=== PATIENT | male | born 1965 | race Caucasian/White ===

== ENCOUNTER 2024-11-28 16:32 | Inpatient (IN) | payer BC, SELFPAY ==
[2024-11-28 09:27] VITALS: BP 151/108
[2024-11-28 10:16] LABS: % Basophils 0.2 % (0-2); % Eosinophils 0.3 % (0-6); % Immature Granulocytes 0.3 % (0-0.5); % Lymphocytes 16.2 % (20.5-51.1); % Monocytes 7.8 % (1.7-9.3); % Neutrophils 75.2 % (42.2-75.2); Absolute Lymphocytes 1.9 10^3/uL (1.2-3.4); Absolute Monocytes 0.9 10^3/uL (0.1-0.6); Absolute Neutrophils 8.6 10^3/uL (1.4-6.5); Hematocrit 46.3 % (39.0-52.0); Hemoglobin 16.5 g/dL (13.0-18.0); Mean Corp Hgb Conc. 35.6 g/dL (33.0-37.0); Mean Corpuscular Hgb 31.1 pg (27.0-31.0); Mean Corpuscular Volume 87.2 fL (80.0-94.0); Mean Platelet Volume 9.1 fL (7.4-10.4); Nucleated Red Blood Cells % 0 % (-); Platelet Count 212 10^3/uL (130-400); Red Blood Cell Count 5.31 10^6/uL (4.70-6.10); Red Cell Dist. Width 12.2 % (11.5-14.5); White Blood Cell Count 11.4 10^3/uL (4.8-10.8)
[2024-11-28 10:34] LABS: ALT (SGPT) 39 U/L (0-50); AST (SGOT) 32 U/L (17-59); Albumin 4.8 g/dl (3.5-5.0); Alkaline Phosphatase 81 U/L (38-126); Blood Urea Nitrogen 14 mg/dl (9-20); Calcium 9.3 mg/dl (8.4-10.2); Carbon Dioxide 26 mmol/L (22-30); Chloride 97 mmol/L (98-107); Glucose 151 mg/dl (70-99); Lipase 153 U/L (23-300); Potassium 3.9 mmol/L (3.5-5.1); Sodium 137 mmol/L (135-145); Total Bilirubin 3.2 mg/dl (0.2-1.3); Total Protein 7.9 g/dl (6.3-8.2); eGFR 49.63
--- NOTE | 2024-11-28 11:11 | ED.GENMED ---
History of Present Illness
General
Chief Complaint: Abdominal Pain
Source: patient
Exam Limitations: none
Time Seen by Provider: 11/28/24 11:12
Nursing documentation reviewed up to this point in time: agreed with
History of Present Illness
History of Present Illness:
The patient is a pleasant 59-year-old man who comes in with complaints of left lower abdominal pain for several days. Patient reports it is constant. He reports associated with nausea but no vomiting. He denies fever. He denies urinary
complaints. He has no chest pain or shortness of breath
Past History
Past History
ED Past Medical History: Psychiatric (Anxiety, depression) and Other (Anxiety)
ED Past Surgical History: Appendectomy
Social History
Tobacco: Non-smoker
Alcohol: None
Drug: Marijuana
Personal:
Living: with family
Employment: Other
Family History
Family History: Other
Review of Systems
Review of Systems
Allergies reviewed?: Yes
All Other Systems: ROS reviewed and negative except as documented in HPI and ROS
Constitutional: Reports no symptoms
EENT: Reports no symptoms
Respiratory: Reports no symptoms
Cardiac: Reports no symptoms
ABD/GI: Reports abdominal pain and nausea
: Reports no symptoms
Musculoskeletal: Reports no symptoms
Skin: Reports no symptoms
Neurological: Reports no symptoms
Endocrine: Reports no symptoms
Hematologic/Lymphatic: Reports no symptoms
Psychiatric: Reports no symptoms
Phy Exam
Physical Exam
Physical Exam:
Physical Exam
General: no apparent distress, not acutely ill
Neck: supple. no meningeal signs. normal psoterior pharynx
Heart: s1/s2 regular rate and rhythm, no murmur. equal radial pulses.
Lungs: no acute respiratory distress. clear bilaterally
Abdomen: Soft. Left lower quadrant tenderness. No rebound or guarding. No pulsatile mass
Neuro: alert and oriented. no focal neurological deficits
Skin: no rash
Psychiatric: well kept. interactive and cooperative
Extremities: no edema. no calf tenderness. negative homans. good distal pulses
Course
Orders/Labs/Results
Orders:
Orders
11/28/24 09:33
Complete Blood Count/With Diff Urgent
Comprehensive Metabolic Panel Urgent
Lipase Urgent
11/28/24 11:12
CT Abd/pelvis W Iv Cont Urgent
Comment:
Reason For Exam: LLQ pain
11/28/24 11:42
Morphine Sulfate 4 mg IV NOW STA
Ondansetron Injectable [Zofran] 4 mg IV NOW STA
11/28/24 13:09
Urinalysis Reflex To Culture Urgent
Date Specimen was Collected: 11/28/24
Time Specimen was Collected: 12:16
Urine Microscopic Reflex Cult Urgent
Urine Culture Urgent
NAPOLEON Source: U
Specimen Description:
Date Specimen was Collected: 11/28/24
Time Specimen was Collected: 12:16
11/28/24 13:47
Morphine Sulfate 4 mg IV NOW STA
11/28/24 14:10
CefTRIAXone [Rocephin] 1,000 mg IV NOW STA
11/28/24 14:11
0.9% Sodium Chloride 1000 ml [Nss] 1,000 ml IV BOLUS
11/28/24 14:12
0.9% Sodium Chloride 1000 ml [Nss] 1,000 ml IV BOLUS
11/28/24 14:16
Sterile Water [Sterile Water For Injection] 10 ml .ROUTE .STK-MED ONE
11/28/24 Dinner
Regular
At Your Request: Full Participation
Does patient need a safe tray?: No
11/28/24 15:50
Admit/Transfer Patient As Directed
Co-Sign Provider:
Level of Care: Inpatient admission
Assign to:: Telemetry
Physician / Group: Alexi Peace
Diagnosis: acute left hydroureteronephrosis
Reason for Telemetry: Arrhythmia
Date to Stop Telemetry: 12/01/24
Time to Stop Telemetry: 11:00
Reason for Hospitalization: acute left hydroureteronephrosis
Expected length of stay greater than two midnights?: Yes
ELOS- Estimated Length of Stay in days: 3
I certify the patient meets the requirements for IP care: Yes
11/28/24 15:51
Code Status As Directed
Resuscitation Status: Full Code
11/28/24 17:04
Acetaminophen [Tylenol] 650 mg PO Q4HPRN PRN
Morphine Sulfate 4 mg IV Q2HPRN PRN
Ondansetron Injectable [Zofran] 4 mg IV Q6HPRN PRN
Polyethylene Glycol Powder [Miralax] 17 grams PO DAILYPRN PRN
11/28/24 17:04
Activity As Directed
Activity Level: Ambulate
Vital Signs As Directed
Frequency: Per unit guidelines
Weight As Directed
Frequency: Once
DX Deep Vein Thrombosis Video Routine
11/29/24 06:12
Basic Metabolic Panel IN AM
Complete Blood Count/With Diff IN AM
11/29/24 08:00
Lisinopril [Zestril] 20 mg PO DAILY
11/29/24 14:00
CefTRIAXone [Rocephin] 1,000 mg IV Q24H
11/29/24 18:00
Enoxaparin Sodium [Lovenox] 40 mg SC QPM
12/01/24 11:00
DC Protocol for Telemetry ONCE
Abnormal Lab Results
11/28/24 11/28/24
09:33 13:09
WBC 11.4 H 10^3/uL
(4.8-10.8)
MCH 31.1 H pg
(27.0-31.0)
Absolute Neuts (auto) 8.6 H 10^3/uL
(1.4-6.5)
Absolute Monos (auto) 0.9 H 10^3/uL
(0.1-0.6)
Lymphocytes % 16.2 L %
(20.5-51.1)
Chloride 97 L mmol/L
(98-107)
Creatinine 1.6 H mg/dL
(0.7-1.3)
Glucose 151 H mg/dl
(70-99)
Total Bilirubin 3.2 H mg/dl
(0.2-1.3)
Urine Ketones 1+ A
(Negative)
Leukocyte Esterase Rfl Trace A
(Negative)
Urine RBC 3-6 A /HPF
(0-2)
Urine WBC (Reflex) 16-20 A /HPF
(0-5)
Urine Bacteria (Reflex) Few A
(Negative)
11/28/24 09:33
11/28/24 09:33
Vital Signs
Initial and Last Documented VS:
Initial Vital Signs
Temp Pulse Resp BP Pulse Ox
98.5 F 98 18 151/108 98
11/28/24 09:27 11/28/24 09:27 11/28/24 09:27 11/28/24 09:27 11/28/24 09:27
Last Documented Vital Signs
Temp Pulse Resp BP Pulse Ox
99.1 F 77 18 112/76 95
11/29/24 15:37 11/29/24 15:37 11/29/24 15:37 11/29/24 15:37 11/29/24 15:37
MDM/Problems Addressed
Differential Diagnosis Includes:
Acute diverticulitis, partial bowel obstruction, pyelonephritis
MDM/Problems Addressed:
Patient presents with acute left sided abdominal pain
Chronic conditions affecting care: Previous abdomnial surgery
Acute Exacerbation and/or Progression of Chronic Illness: Previous abdomnial surgery
*Pulse Oximetry
Patient hypoxic: no
*EKG
Interpreted by ED Provider?: NA
*Loss Prevention Consultant Interpretation
Rate: Loss Prevention Consultant- N/A
*Critical Care Note
Total Time (30-74mins, 75-104mins- exclusive of procedures): Not Applicable
ED Attending Note
-
Portions of this chart may have been created with voice recognition software.� Occasional wrong word or��sound alike� substitutions may have occurred due to the inherent limitations of voice recognition software.
Discharge Plan
Departure
Patient Disposition: Admit
Date of Disposition: 11/28/24
Time of Disposition: 14:08
Admit to: Med/Surg
Presentation/result/management discussed w/ accepting MD/DO: Hospitalist
Patient with high blood pressure during this ER visit?: Yes
Condition: Good
Discharge Problem:
intractable left renal colic, Acute UTI
Interventions
Interventions:
*Risk Screen - Suicide Last Done: 11/28/24 09:27
*General Assessment Last Done: 11/28/24 09:27
*Neglect/Abuse Screening Last Done: 11/28/24 09:27
ED- Fall Risk Assessment Last Done: 11/28/24 16:58
*ED COVID-19 Vaccine History Last Done: 11/28/24 09:27
*Nursing Disposition Last Done: 11/28/24 16:58
KL-Nkfipk-Fidvggdyft Assessment Last Done: 11/28/24 11:18
Discharge Date and Time
Discharge Date/Time: 11/28/24 17:05
[2024-11-28] MEDS: ZOFRAN 4 MG IV (11:48)
[2024-11-28] MEDS: MORPHINE SULFATE 4 MG IV ×2 (11:49→13:54)
[2024-11-28 13:17] LABS: Urine Albumin Trace (Neg - Trace); Urine Bilirubin Negative (Negative); Urine Character Clear (Clear); Urine Color Yellow; Urine Glucose Negative (Negative); Urine Ketone 1+ (Negative); Urine Leukocyte Trace (Negative); Urine Nitrite Negative (Negative); Urine Occult Blood Negative (Negative); Urine Urobilinogen Negative (Neg - 1+)
[2024-11-28 13:31] LABS: Urine Squamous Cell 0-2 /LPF (Few)
[2024-11-28 13:33] LABS: Urine Bacteria Few (Negative); Urine White Cell 16-20 /HPF (0-5)
[2024-11-28] MEDS: ROCEPHIN 1000 MG IV (14:25)
[2024-11-28] MEDS: NSS 1000 IV ×2 (14:28)
--- NOTE | 2024-11-28 15:12 | HPS.HSE ---
Family Physician
-
Family Physician: Sharath Calderon
Chief Complaint
-
abdominal/flank/back pain
History of Present Illness
Patient is a 59-year-old male with past medical history significant for hypertension and anxiety who presented to [facility] for evaluation of intermittent abdominal, back and flank pain on left side for 3 weeks. Patient states it he feels he
passed a stone previously and now pain is more consistent and severe. He associates pain with intermittent nausea, vomiting and chills. Denies any fevers, chest pain, cough, shortness of breath, constipation, diarrhea or urinary symptoms.
Medical History
Past Medical History
Past Medical History: Reports Other
Additional Past Medical History:
benign hypertension
anxiety
Past Surgical History: Reports Other
Additional Past Surgical History:
appendectomy
Social History
Tobacco: Non-smoker
Alcohol: Occasional
Drug: Marijuana (smokes daily for insomnia)
Personal:
Living: With Family
Employment: Employed
Family History
Family History: Not pertinent
Allergies / Home Medications
Allergies reflects when Allergies were last updated in [employer].
Home Medications with original date entered in [employer]
Allergy/Medication List:
Allergies
Allergy/AdvReac Type Severity Reaction Status Date / Time
No Known Allergies Allergy Verified 11/28/24 09:28
Home Medications
lisinopril 20 mg tablet 20 mg PO DAILY 12/11/21
ondansetron 4 mg disintegrating tablet 4 mg PO BIDPRN PRN nausea 11/28/24
Review of Systems
-
History Source: Patient
Constitutional: Reports Chills
EENT: Reports No Symptoms
Respiratory: Reports No Symptoms
Cardiac: Reports No Symptoms
Abdomen/GI: Reports Abdominal Pain (left side abdominal, flank and back), Nausea and Vomiting
: Reports No Symptoms
Musculoskeletal: Reports No Symptoms
Skin: Reports No Symptoms
Neurological: Reports No Symptoms
Endocrine: Reports No Symptoms
Hematologic/Lymphatic: Reports No Symptoms
Psych: Reports No Symptoms
Physical Exam
Vital Signs
Vital Signs
Temp Pulse Resp BP Pulse Ox
98.5 F 98 16 151/108 98
11/28/24 09:27 11/28/24 09:27 11/28/24 11:16 11/28/24 09:27 11/28/24 09:27
Physical Exam
General: Well Developed, Well Nourished, No Apparent Distress and Conversant
HEENT: NormoCephalic, Moist mucous membranes, Atraumatic, PERRLA, Barron Conjunctivae, Nose Appears Normal, Ears Appear Normal and Neck Nontender
Respiratory: Clear and Non Labored Respirations
Cardiac: S1/S2 and Regular Rhythm; No Murmur, Rub or Gallop
Breast: Deferred by me
GI: Soft, Normal Bowel Sounds and Tender; No Organomegaly
Rectal: Deferred by Provider
Genito-urinary: Deferred by me
Musculoskeletal: No Clubbing, No Cyanosis and No Edema
Skin: No Rash
Neuro: Awake, Alert, AO x 3 and Nonfocal/grossly intact
Psych: Calm and Intact Judgment/Insight
Laboratory Results
-
11/28/24 09:33
11/28/24 09:33
Laboratory Results
Total Bilirubin 3.2 mg/dl (0.2-1.3) H 11/28/24 09:33
AST 32 U/L (17-59) 11/28/24 09:33
ALT 39 U/L (0-50) 11/28/24 09:33
Alkaline Phosphatase 81 U/L (38-126) 11/28/24 09:33
Lipase 153 U/L (23-300) 11/28/24 09:33
Data Reviewed
-
CT Scan: Image Personally Visualized and interpreted
Lab Data: Labs Reviewed by me
Impression/Plan
-
IMPRESSION/PLAN:
#Left side abdominal, flank and back pain
#left obstructing calculus
#acute left hydroureteronephrosis - moderate
WBC 11.4
ABD/Pelvis CT: 1. MODERATE ACUTE LEFT HYDROURETERONEPHROSIS secondary to a 2.6 mm obstructing calculus in the left mid to distal ureter.
2. 3.7 mm nonobstructing right intrarenal calculus.
3. Small number of renal cysts.
4. Moderate diffuse hepatic steatosis.
5. 1.4 cm enhancing lesion in the anterior segment of the right lobe of the liver. Diagnostic possibilities are (1) a hepatic hemangioma (most likely) or (2) less likely other primary or metastatic tumor.
6. Mild splenomegaly.
7. Mild colonic diverticulosis.
8. Moderately enlarged prostate gland.
9. Moderate to severe discogenic degenerative disease at L5/S1.
#benign hypertension
- continue lisinopril
#anxiety
Code Status: Full Code
DVT Prophylaxis: Lovenox Sq
[2024-11-28 16:16] VITALS: BP 112/78
[2024-11-28 17:13] VITALS: BP 151/94; BMI 28.0
[2024-11-28 19:16] VITALS: BP 105/66
--- NOTE | 2024-11-28 19:40 | W.PN.UPDATE ---
Update Note
Progress Note Update
This note serves as an addendum to the H&P by Eda Ahn on November 28, 2024.
History of Presenting Illness
59-year-old male with past medical history significant for hypertension and anxiety who presented for evaluation of 3 episodes of abdominal, back and flank pain on left side for 3 weeks. Patient states it he feels he passed a stone previously and
now pain is more consistent and severe. He associated pain with intermittent nausea, vomiting and chills. He denied any fevers, chest pain, cough, shortness of breath, constipation, diarrhea or urinary symptoms.
Vital Signs
Afebrile
Regular heart rate
BP good/not hypotensive
Saturating well on room air
Physical Exam
General: Well Developed, Well Nourished, No Apparent Distress and Conversant
HEENT: Normocephalic, Moist mucous membranes, Atraumatic
Respiratory: Clear to Auscultation Bilaterally
Cardiac: S1/S2 and Regular Rhythm
GI: Soft, Normal Bowel Sounds and Tender
Musculoskeletal: No Cyanosis and No Edema
Skin: Warm. Dry.
Neuro: Awake, Alert, AO x 3 and Nonfocal/grossly intact
Psych: Calm and Intact Judgment/Insight
Assessment/Plan
#Left side abdominal, flank and back pain
#left obstructing calculus
#acute left hydroureteronephrosis - moderate
WBC 11.4
ABD/Pelvis CT: 1. MODERATE ACUTE LEFT HYDROURETERONEPHROSIS secondary to a 2.6 mm obstructing calculus in the left mid to distal ureter.
2. 3.7 mm nonobstructing right intrarenal calculus.
3. Small number of renal cysts.
4. Moderate diffuse hepatic steatosis.
5. 1.4 cm enhancing lesion in the anterior segment of the right lobe of the liver. Diagnostic possibilities are (1) a hepatic hemangioma (most likely) or (2) less likely other primary or metastatic tumor.
6. Mild splenomegaly.
7. Mild colonic diverticulosis.
8. Moderately enlarged prostate gland.
9. Moderate to severe discogenic degenerative disease at L5/S1.
-Pain control
-Patient's stone is less than 5 mm; it is expected to pass spontaneously
-Patient will need to strain urine for several days
-Will need close urology follow-up
-If patient's symptoms and ALDA do not improve, and he has nausea, vomiting, UTI gets worse, then will consult urology
-Will discuss with urology whether an inpatient consultation is needed
-Given enlarged prostate gland, will start Tamsulosin
#Acute Kidney Injury -- likely postobstructive
#benign hypertension
- continue lisinopril
#anxiety
Code Status: Full Code
DVT Prophylaxis: Lovenox Sq
[2024-11-28] MEDS: FLOMAX 0.4 MG PO (20:42)
[2024-11-28 23:38] VITALS: BP 105/71
[2024-11-29 03:27] VITALS: BP 107/70
[2024-11-29 07:18] LABS: % Basophils 0.3 % (0-2); % Eosinophils 1.7 % (0-6); % Immature Granulocytes 0.3 % (0-0.5); % Lymphocytes 23.8 % (20.5-51.1); % Monocytes 9.4 % (1.7-9.3); % Neutrophils 64.5 % (42.2-75.2); Absolute Eosinophils 0.2 10^3/uL (0-0.7); Absolute Lymphocytes 2.2 10^3/uL (1.2-3.4); Absolute Monocytes 0.9 10^3/uL (0.1-0.6); Absolute Neutrophils 5.9 10^3/uL (1.4-6.5); Hematocrit 40.7 % (39.0-52.0); Hemoglobin 13.9 g/dL (13.0-18.0); Mean Corp Hgb Conc. 34.2 g/dL (33.0-37.0); Mean Corpuscular Hgb 30.8 pg (27.0-31.0); Mean Corpuscular Volume 90.2 fL (80.0-94.0); Mean Platelet Volume 9.3 fL (7.4-10.4); Nucleated Red Blood Cells % 0 % (-); Platelet Count 189 10^3/uL (130-400); Red Blood Cell Count 4.51 10^6/uL (4.70-6.10); Red Cell Dist. Width 12.2 % (11.5-14.5); White Blood Cell Count 9.2 10^3/uL (4.8-10.8)
[2024-11-29 07:30] VITALS: BP 115/75
[2024-11-29 07:43] LABS: Blood Urea Nitrogen 16 mg/dl (9-20); Calcium 8.7 mg/dl (8.4-10.2); Carbon Dioxide 29 mmol/L (22-30); Chloride 99 mmol/L (98-107); Estimated Creatinine Clearance 52 ml/min; Glucose 97 mg/dl (70-99); Sodium 136 mmol/L (135-145); eGFR 53.63
[2024-11-29] MEDS: FLOMAX 0.4 MG PO (08:07)
[2024-11-29] MEDS: ZESTRIL 20 MG PO (08:07)
[2024-11-29 10:12] LABS: Magnesium 2.1 mg/dl (1.6-2.3)
[2024-11-29 11:23] VITALS: BP 138/77
[2024-11-29] MEDS: STERILE WATER FOR INJECTION 10 ML IV (14:29)
[2024-11-29] MEDS: ROCEPHIN 1000 MG IV (14:30)
--- NOTE | 2024-11-29 14:39 | W.PN.HOSP.TC ---
Today's Communication/Plan
-
Discharge today
Assessment / Plan
Assessment / Plan
Physical Exam
General: Well Developed, Well Nourished, No Apparent Distress and Conversant
HEENT: Normocephalic, Moist mucous membranes, Atraumatic
Respiratory: Clear to Auscultation Bilaterally
Cardiac: S1/S2 and Regular Rhythm
GI: Soft, Normal Bowel Sounds and Tender
Musculoskeletal: No Cyanosis and No Edema
Skin: Warm. Dry.
Neuro: Awake, Alert, AO x 3 and Nonfocal/grossly intact
Psych: Calm and Intact Judgment/Insight
Assessment/Plan
#Left side abdominal, flank and back pain
#left obstructing calculus
#acute left hydroureteronephrosis - moderate
WBC 11.4
ABD/Pelvis CT: 1. MODERATE ACUTE LEFT HYDROURETERONEPHROSIS secondary to a 2.6 mm obstructing calculus in the left mid to distal ureter.
2. 3.7 mm nonobstructing right intrarenal calculus.
3. Small number of renal cysts.
4. Moderate diffuse hepatic steatosis.
5. 1.4 cm enhancing lesion in the anterior segment of the right lobe of the liver. Diagnostic possibilities are (1) a hepatic hemangioma (most likely) or (2) less likely other primary or metastatic tumor.
6. Mild splenomegaly.
7. Mild colonic diverticulosis.
8. Moderately enlarged prostate gland.
9. Moderate to severe discogenic degenerative disease at L5/S1.
-Pain control
-Patient's stone is less than 5 mm; it is expected to pass spontaneously
-Patient will need to strain urine for several days
-Cefpodoxime 200 mg BID for 9 days
-No inpatient urology consult needed as patient is pain and fever free, and Cr has started to come down
-Given enlarged prostate gland, started Tamsulosin
-See PCP tomorrow and follow-up with urology
#Acute Kidney Injury -- likely postobstructive
#benign hypertension
- continue lisinopril
#anxiety
Code Status: Full Code
DVT Prophylaxis: Lovenox Sq
More than 30 minutes spent in discharge including
Final examination of the patient
Summarizing hospital stay
Instructions for continuing care to all relevant caregivers
Preparation of discharge records, prescriptions, and referral forms
Total time spent (in minutes): 40
Anticipated Discharge: Today
Subjective/Interval History
-
Date of Service: November 29, 2024
Patient was seen and examined. He reported no pain, urinating well without issue, and is very agreeable to going home today. He denied any fever or chills.
Objective Data
-
Labs:
Laboratory Results
11/29/24
06:12
WBC 9.2
Hgb 13.9
Hct 40.7
Plt Count 189
Sodium 136
Potassium 4.0
Chloride 99
Carbon Dioxide 29
BUN 16
Creatinine 1.5 H
Glucose 97
Calcium 8.7
Vital Signs:
Vital Signs
Temp Pulse Resp BP Pulse Ox
98.6 F 81 18 138/77 95
11/29/24 11:23 11/29/24 11:23 11/29/24 11:23 11/29/24 11:23 11/29/24 11:23
I&O
11/28/24 11/29/24 11/30/24
06:59 06:59 06:59
Intake Total 240 / 240
Output Total 400 / 400
Balance -160 / -160
[2024-11-29 15:37] VITALS: BP 112/76
--- NOTE | 2024-11-29 16:23 | CM ---
Alert awake oriented patient who lives with his Jacklyn who lives in a 2 story home with 1 step to enter and 8 steps to bed and bathroom. He is independent in driving and in all activities of daily living.He was offered VN he declined need.No
adaptive devices.
No VN hx / No SNF history
Pharmacy [facility] Shak[facility]
PCP DR Calderon
PLAN Home Declined VN
== END 2024-11-29 16:21 | disposition home or self-care (01) | DRG 690 ==
LOC: 4 EAST ACU 16:32
PROVIDERS: Nurse Practitioner Family; ADMITTING PHYSICIAN Hospitalist; EMERGENCY PHYSICIAN Emergency Medicine; FAMILY PHYSICIAN Internal Medicine; REFERRING PHYSICIAN Internal Medicine
DX: N13.6 Pyonephrosis (principal); N17.9 Acute kidney failure, unspecified; I10 Essential (primary) hypertension; F41.9 Anxiety disorder, unspecified
CPT/HCPCS: 74177; 80048; 80053; 81003; 81015; 83690; 83735; 85025; 87086; 96361; 96374; 96375; 96376; 99285; Q9967

== ENCOUNTER 2025-01-01 12:33 | Emergency (ER) | payer BC, SELFPAY ==
[2025-01-01 12:48] VITALS: BP 155/103
[2025-01-01 13:11] LABS: % Basophils 0.3 % (0-2); % Immature Granulocytes 0.4 % (0-0.5); % Lymphocytes 7.2 % (20.5-51.1); % Monocytes 3.7 % (1.7-9.3); % Neutrophils 88.4 % (42.2-75.2); Absolute Immature Granulocytes 0.1 10^3/uL (0-0.05); Absolute Lymphocytes 0.8 10^3/uL (1.2-3.4); Absolute Monocytes 0.4 10^3/uL (0.1-0.6); Absolute Neutrophils 10.3 10^3/uL (1.4-6.5); Hematocrit 42.6 % (39.0-52.0); Hemoglobin 15.3 g/dL (13.0-18.0); Mean Corp Hgb Conc. 35.9 g/dL (33.0-37.0); Mean Corpuscular Hgb 31.5 pg (27.0-31.0); Mean Corpuscular Volume 87.7 fL (80.0-94.0); Nucleated Red Blood Cells % 0 % (-); Platelet Count 232 10^3/uL (130-400); Red Blood Cell Count 4.86 10^6/uL (4.70-6.10); Red Cell Dist. Width 11.8 % (11.5-14.5); White Blood Cell Count 11.7 10^3/uL (4.8-10.8)
[2025-01-01 13:32] LABS: ALT (SGPT) 25 U/L (0-50); AST (SGOT) 29 U/L (17-59); Alkaline Phosphatase 85 U/L (38-126); Blood Urea Nitrogen 15 mg/dl (9-20); Calcium 9.7 mg/dl (8.4-10.2); Carbon Dioxide 26 mmol/L (22-30); Chloride 98 mmol/L (98-107); Glucose 159 mg/dl (70-99); Potassium 4.2 mmol/L (3.5-5.1); Sodium 140 mmol/L (135-145); Total Bilirubin 1.6 mg/dl (0.2-1.3); Total Protein 7.7 g/dl (6.3-8.2); eGFR > 60.00
[2025-01-01 13:38] LABS: Urine Albumin 3+ (Neg - Trace); Urine Bilirubin Negative (Negative); Urine Character Cloudy (Clear); Urine Color Red; Urine Glucose Negative (Negative); Urine Ketone 1+ (Negative); Urine Leukocyte 2+ (Negative); Urine Nitrite Positive (Negative); Urine Occult Blood 4+ (Negative); Urine Specific Gravity 1.015 (<1.030); Urine Urobilinogen 1+ (Neg - 1+); Urine pH 6.5 (5.0-9.0)
[2025-01-01 13:44] VITALS: BP 148/90
[2025-01-01 13:48] LABS: Urine Bacteria Few (Negative); Urine Red Blood Cell 90-100 /HPF (0-2); Urine Squamous Cell 0-2 /LPF (Few); Urine White Cell 0-2 /HPF (0-5)
--- NOTE | 2025-01-01 14:06 | ED.GENMED ---
History of Present Illness
General
Chief Complaint: Flank Pain
Source: patient
Exam Limitations: none
Time Seen by Provider: 01/01/25 13:50
Nursing documentation reviewed up to this point in time: agreed with
History of Present Illness
History of Present Illness:
59-year-old male with history of kidney stones, is here for right flank pain,hematuria.
Patient had kidney stone on the left first week of November he was admitted overnight due to leukocytosis and increased creatinine, he was put on antibiotics and was discharged the next day. He followed Dr. Jamison that week and was put on Flomax and
for 2 weeks he was fine with just a 'twinge' in left flank area. Past 3 weeks had 3 episodes (once weekly) of L flank pain (with vomiting with the pain, and immediate relief of pain after vomiting).Has not noticed that he passed any stone
3 days ago, had pain for 2 hours with hematuria, then urine was clear again.
Yesterday developed hematuria again with RIGHT flank pain and vomiting through the night
Took Zofran and Hydrocodone with some relief and now R flank pain is 1-2/10 and still with hematuria
Has had urgency and frequency of urination past 3 days.
Denies fever/chills.
Past History
Past History
ED Past Medical History: Psychiatric (Anxiety, depression) and Other (kidney stones)
ED Past Surgical History: Appendectomy
Social History
Tobacco: Non-smoker
Alcohol: None
Drug: Marijuana
Personal:
Living: with family
Employment: Other
Family History
Family History: Other
Review of Systems
Review of Systems
Allergies reviewed?: Yes
All Other Systems: ROS reviewed and negative except as documented in HPI and ROS
Constitutional: Denies fever or chills
Respiratory: Denies trouble breathing
Cardiac: Denies chest pain
ABD/GI: Reports nausea and vomiting; Denies abdominal pain or diarrhea
: Reports frequency, flank pain (Right), urgency and bleeding (hematuria); Denies dysuria, incontinence or difficulty voiding
Musculoskeletal: Reports no symptoms
Skin: Reports no symptoms
Neurological: Reports no symptoms
Phy Exam
Physical Exam
Physical Exam:
GENERAL: No acute distress. A&Ox3.
CONSTITUTIONAL: Afebrile.
EYES: clear, conjunctivae normal
ENMT: moist mucus membranes
RESPIRATORY: Regular respirations, nonlabored, lungs clear.
CARDIOVASCULAR: Regular rate and rhythm, no murmurs, no rubs.
GI: Soft, nontender, normal BS
: Hematuria
MUSCULOSKELETAL: Moves with ease. Well perfused.
SKIN: Warm, dry, pink
PSYCH: Normal mood and affect. Well kept, interactive and appropriate
NEUROLOGIC: Awake, alert and oriented. No focal neurological deficits
Course
Orders/Labs/Results
Orders:
Orders
01/01/25 12:57
Complete Blood Count/With Diff Urgent
Comprehensive Metabolic Panel Urgent
01/01/25 13:21
Urinalysis Reflex To Culture Urgent
Date Specimen was Collected: 01/01/25
Time Specimen was Collected: 12:51
Urine Microscopic Reflex Cult Urgent
Urine Culture Urgent
NAPOLEON Source: U
Specimen Description:
Date Specimen was Collected: 01/01/25
Time Specimen was Collected: 12:51
01/01/25 14:05
CT Abd/pel Without Iv Or Oral Urgent
Comment:
Reason For Exam: R flank pain, hematuria
Abnormal Lab Results
01/01/25 01/01/25
12:57 13:21
WBC 11.7 H 10^3/uL
(4.8-10.8)
MCH 31.5 H pg
(27.0-31.0)
Abs Immat Gran (auto) 0.1 H 10^3/uL
(0-0.05)
Absolute Neuts (auto) 10.3 H 10^3/uL
(1.4-6.5)
Absolute Lymphs (auto) 0.8 L 10^3/uL
(1.2-3.4)
Neutrophils % 88.4 H %
(42.2-75.2)
Lymphocytes % 7.2 L %
(20.5-51.1)
Glucose 159 H mg/dl
(70-99)
Total Bilirubin 1.6 H mg/dl
(0.2-1.3)
Urine Ketones 1+ A
(Negative)
Ur Occult Blood Reflex 4+ A
(Negative)
Urine Nitrite (Reflex) Positive A
(Negative)
Leukocyte Esterase Rfl 2+ A
(Negative)
Urine RBC 90-100 A /HPF
(0-2)
Urine Bacteria (Reflex) Few A
(Negative)
Urine Albumin (Reflex) 3+ A
(Neg - Trace)
01/01/25 12:57
01/01/25 12:57
Vital Signs
Initial and Last Documented VS:
Initial Vital Signs
Temp Pulse Resp BP Pulse Ox
98.9 F 95 16 155/103 96
01/01/25 12:48 01/01/25 12:48 01/01/25 12:48 01/01/25 12:48 01/01/25 12:48
Last Documented Vital Signs
Temp Pulse Resp BP Pulse Ox
98.9 F 93 20 148/90 96
01/01/25 12:48 01/01/25 14:45 01/01/25 14:16 01/01/25 13:44 01/01/25 14:45
MDM/Problems Addressed
MDM/Problems Addressed:
59-year-old male with history of kidney stones, is here for right flank pain,hematuria.
Patient had kidney stone on the left first week of November he was admitted overnight due to leukocytosis and increased creatinine, he was put on antibiotics and was discharged the next day. He followed Dr. Jamison that week and was put on Flomax and
for 2 weeks he was fine with just a 'twinge' in left flank area. Past 3 weeks had 3 episodes (once weekly) of L flank pain (with vomiting with the pain, and immediate relief of pain after vomiting).Has not noticed that he passed any stone
3 days ago, had pain for 2 hours with hematuria, then urine was clear again.
Yesterday developed hematuria again with RIGHT flank pain and vomiting through the night
Took Zofran and Hydrocodone with some relief and now R flank pain is 1-2/10 and still with hematuria
Has had urgency and frequency of urination past 3 days.
Denies fever/chills.
Afebrile, NAD
CBC with no clinically significant abnormality
CMP with no clinically significant abnormality
Urinalysis: 4+ blood, nitrate positive, 2+ leukocyte Estrace, RBCs 90-100, WBC 0-2
3:30 p.m.
With hx pyelonephritis, urine + for nitrites/leukocytes will DC pt on Cefpodoxime which he had for previous UTI/pyelo
Consulted Dr. Brandon who agrees with plan.
*Critical Care Note
Total Time (30-74mins, 75-104mins- exclusive of procedures): Not Applicable
ED Attending Note
-
Portions of this chart may have been created with voice recognition software.� Occasional wrong word or��sound alike� substitutions may have occurred due to the inherent limitations of voice recognition software.
Discharge Plan
Departure
Patient Disposition: Home (Routine Discharge)
Date of Disposition: 01/01/25
Time of Disposition: 15:52
Patient with high blood pressure during this ER visit?: No
Condition: Good
Discharge Problem:
Calculus of distal right ureter
Instructions: Kidney Stones (DC)
Prescriptions:
New
cefpodoxime 200 mg tablet
200 mg PO BID Qty: 20 0RF
ketorolac 10 mg tablet
10 mg PO Q8H PRN (Reason: Pain) 5 Days Qty: 20 0RF
tamsulosin [Flomax] 0.4 mg capsule
0.4 mg PO DAILY Qty: 14 0RF
ondansetron 4 mg tablet,disintegrating
4 mg PO Q8H PRN (Reason: nausea and vomiting) 5 Days Qty: 15 0RF
No Action
lisinopril 20 MG tablet
20 mg PO DAILY
ondansetron 4 mg Tablet,Disintegrating
4 mg PO BIDPRN PRN (Reason: nausea)
tamsulosin 0.4 mg Capsule
0.4 mg PO DAILY Qty: 30 1RF
cefpodoxime 200 mg tablet
200 mg PO Q12H 9 Days Qty: 18 0RF
Referrals:
Jonny Brandon MD [Active] - Tomorrow
Sharath Calderon MD [Family Provider] -
Activity Restrictions/Additional Instructions:
As we discussed, I sent a prescription to your pharmacy for Toradol to use as needed for pain, Flomax to take daily for 14 days and cefpodoxime antibiotic for early urine infection and Zofran (Ondansetron) as needed for nausea/vomiting.
Drink plenty of water, strain your urine
Call Dr. Ackerman's office tomorrow and make a follow-up appointment
Return immediately for fever/chills, worsening pain or feeling sicker in any way.
Interventions
Interventions:
*Risk Screen - Suicide Last Done: 01/01/25 14:00
*General Assessment Last Done: 01/01/25 14:00
*Neglect/Abuse Screening Last Done: 01/01/25 14:00
*ED COVID-19 Vaccine History Last Done: 01/01/25 14:00
*Nursing Disposition Last Done: 01/01/25 16:32
IF-Zlplac-Yafxkhfwfv Assessment Last Done: 01/01/25 14:00
ED-Male Genitourinary Assessment Last Done: 01/01/25 14:00
Discharge Date and Time
Discharge Date/Time: 01/01/25 16:32
Print Language: GUAMANIAN
== END 2025-01-01 16:32 | disposition home or self-care (01) ==
LOC: EMR 12:33
PROVIDERS: Emergency Medicine; EMERGENCY PHYSICIAN Student in an Organized Health Care Education/Training Program; FAMILY PHYSICIAN Internal Medicine
DX: N13.2 Hydronephrosis with renal and ureteral calculous obstruction (principal)
CPT/HCPCS: 99284; 74176; 80053; 81003; 81015; 85025; 87086

== ENCOUNTER → 2025-01-11 10:50 | Outpatient (REF) | payer BC, SELFPAY | LOC: MRI 3T 10:50 | PROVIDERS: ATTENDING PHYSICIAN Internal Medicine | DX: K76.9 Liver disease, unspecified (principal) | CPT/HCPCS: 74183; A9575 ==